=== PATIENT | female | born 1960 | race Caucasian/White ===

== ENCOUNTER → 2023-03-20 | Outpatient (CLI) | payer MEDICARE, SELFPAY ==
--- NOTE | 2023-03-20 16:50 | RAD_ITS ---
STUDY: X-RAY - RIGHT FOOT CLINICAL: Female, 62 years old. PAIN TECHNIQUE: 3 view(s) of the foot. COMPARISON: None. FINDINGS: No acute abnormality seen. No fracture or dislocation. Post surgical changes of talocalcaneal ankylosis and an interference screw is seen in the distal fibula. Normal visualized subtalar, talonavicular, calcaneocuboid, tarsal and tarsometatarsal articulations. Normal metatarsi. Normal metatarsophalangeal joint of the great toe. Normal tibial and fibular sesamoid bones. Normal interphalangeal joint of the great toe. Normal phalanges of the great toe. Normal second through fifth metatarsophalangeal joints. Normal interphalangeal joints and phalanges of the lesser toes. The soft tissue structures are unremarkable. There is no demonstrated acute fracture. RAD/Foot min 3 Views IMPRESSION: Postsurgical changes. No definite acute fracture or dislocation. Electronically Signed: Ar Gomez MD at 22:56 EDT ,
--- NOTE | 2023-03-20 16:54 | RAD_ITS ---
STUDY: X-RAY - LEFT ANKLE REASON FOR EXAM: Female, 62 years old. PAIN TECHNIQUE: 3 view(s) of the ankle. COMPARISON: None. FINDINGS: Normal visualized distal tibia and fibula. Normal medial and lateral malleoli. Normal tibiotalar articulation and ankle mortise. Normal visualized talus and calcaneus. The visualized subtalar, talonavicular, calcaneocuboid and tarsal articulations are normal. There is no demonstrated fracture. There is lateral soft tissue swelling. RAD/Ankle min 3 Views IMPRESSION: No fracture or dislocation. Electronically Signed: Ar Gomez MD at 22:31 EDT ,
== END | disposition home or self-care (01) ==
PROVIDERS: Visit Provider Family Medicine
DX: I10 Essential (primary) hypertension (principal); M25.572 Pain in left ankle and joints of left foot; M19.90 Unspecified osteoarthritis, unspecified site; F41.8 Other specified anxiety disorders
CPT/HCPCS: 73610; 73630

== ENCOUNTER 2023-11-12 19:47 | Emergency (ER) | payer MEDICARE, SELFPAY ==
[2023-11-12 19:48] VITALS: BP 188/111; PULSE 100; RESP 18; TEMP 36.6; O2SAT 95; BMI 33.0
--- NOTE | 2023-11-12 19:52 | RAD_ITS ---
STUDY: X-RAY - RIGHT ANKLE REASON FOR EXAM: Female, 63 years old. Pain TECHNIQUE: 4 view(s) of the ankle. COMPARISON: None. FINDINGS: Normal visualized distal tibia. There is postoperative change of the distal fibula. There is spurring of the medial and lateral malleoli. Normal tibiotalar articulation and ankle mortise. There is screw entering from posteriorly fusing across the subtalar joint. There is plantar spur of the calcaneus. The visualized talonavicular and calcaneocuboid articulations are normal. There is soft tissue swelling. RAD/Ankle min 3 Views IMPRESSION: Degenerative and postoperative change. Electronically Signed: Gerardo Perez MD at 21:08 EDT ,
--- NOTE | 2023-11-12 21:08 | ED.VIS.LOWEX ---
HPI <KELIN Gonzalez - Last Filed: 11/12/23 21:51> History of Present Illness Chief Complaint: Lower Extremity Injury Narrative Narrative: 63-year-old female states she has a right ankle injury from years ago. Initially a qa software tester removed some bone chips but it never healed properly. Around 2014 an orthopedic crystal surgeon did reconstruction surgery. She still gets intermittent pain/swelling in the ankle since then but yesterday was walking in the hallway and felt a crunching in the heel and today has more pain and swelling in the ankle. There was no fall or injury. PFSH <KELIN Gonzalez - Last Filed: 11/12/23 21:51> PFSH Allergy/AdvReac Type Severity Reaction Status Date / Time pregabalin [From Lyrica] Allergy Mild Swelling Verified 11/12/23 19:51 lovastatin AdvReac Mild achy Verified 11/12/23 19:51 Social History Smoking Status: Unknown if ever smoked ROS <KELIN Gonzalez - Last Filed: 11/12/23 21:51> ROS ED ROS Narrative Neuro: Negative for motor/sensory dysfunction. Musc: Positive for right ankle pain, swelling. Heme: Negative for easy bruising, bleeding, lymphadenopathy. EXAM <KELIN Gonzalez - Last Filed: 11/12/23 21:51> Physical Exam Narrative Exam Narrative: CONST: Patient sitting in no acute distress. EYES: Normal inspection. NECK: Normal inspection. SKIN: Color normal, no rash, warm, dry, intact. EXTREMITIES: Right ankle edema lateral greater than medial with lateral malleolus tenderness, no deformity or crepitus, Achilles intact, no tenderness of the foot. 5/5 strength in dorsiflexion/plantarflexion, normal sensation, Dopplers biphasic DP pulse. NEURO: Alert and answering questions appropriately. PSYCH: Normal affect. Const Vital Signs: 11/12/23 19:48 Temperature 97.9 F Temperature Source Temporal Pulse Rate 100 Respiratory Rate 18 Blood Pressure 188/111 H Blood Pressure Mean 136 Pulse Ox 95 Oxygen Delivery Method Room Air <Dr. Dylan Hair MD - Last Filed: 11/12/23 22:32> Physical Exam Const Vital Signs: 11/12/23 19:48 Temperature 97.9 F Temperature Source Temporal Pulse Rate 100 Respiratory Rate 18 Blood Pressure 188/111 H Blood Pressure Mean 136 Pulse Ox 95 Oxygen Delivery Method Room Air [facility] <KELIN Gonzalez - Last Filed: 11/12/23 21:51> [facility] Narrative Medical decision making narrative: Patient has right ankle pain. It started hurting yesterday while walking and she has increased swelling. No direct trauma. She has swelling especially laterally and mild tenderness. No tenderness of the calf or foot is present. Neurovascularly intact. X-ray shows prior surgical hardware no acute findings. This could be ankle sprain versus claudication. Patient is able to ambulate with her cane and requests a referral to a local orthopedist as it has been many years since she saw [facility]. I provided follow-up for Dr. Peña and she was discharged in stable condition Radiography Diagnostic Testing: Clinical Impression(s) from Imaging Studies Ankle X-Ray 11/12/23 19:52 IMPRESSION: Degenerative and postoperative change. Electronically Signed: Gerardo Perez MD at 21:08 EDT Reading Location ID and State: [facility] / [place] , Service support , ED attending interpretation of right ankle shows hardware intact, no acute fracture. <Dr. Dylan Hair MD - Last Filed: 11/12/23 22:32> [facility] Narrative Medical decision making narrative: Patient has right ankle pain. It started hurting yesterday while walking and she has increased swelling. No direct trauma. She has swelling especially laterally and mild tenderness. No tenderness of the calf or foot is present. Neurovascularly intact. X-ray shows prior surgical hardware no acute findings. This could be ankle sprain versus claudication. Patient is able to ambulate with her cane and requests a referral to a local orthopedist as it has been many years since she saw [facility]. I provided follow-up for Dr. Peña and she was discharged in stable condition I have personally performed a face to face assessment of the patient and have reviewed the MIKE Note. I performed a substantive portion of the visit including all aspects of the following. My dudley findings include: History is for pain ankle and heel. Patient had a calcaneal fracture which was repaired by orthopedic surgeon at [facility]. She does not recall the name. She presents because she feels the bones are rubbing. She is also questioning if this bruising had moved. She also reports numbness in the heel area. She denies tingling her toes. She has intermittent claudication. She is a smoker. Exam is patient has stigmata of peripheral arterial disease. There is swelling over the lateral malleolus. There is well-healed scar due to prior surgery. DP and PT pulse are nonpalpable. Patient has biphasic flow noted with Doppler. Patient has no hair on her toes. Skin is thin. There is slight thickening of the toenails. Medical Decision Making x-ray was obtained. X-ray reveals no displacement of hardware. There is arthritic changes. There is no effusion noted. There is no foreign body noted. There is independently reviewed interpreted by me. Other additions or changes: Patient was told that her numbness and all likely is due to her peripheral arterial disease. It was in her best is to stop smoking. Recommended she throw away her pack of cigarettes on the way out of the emergency department. Radiography Chest X-Ray - ED: Read by ED Physician (X-ray was interpreted by me in the attending note portion of the chart.) Diagnostic Testing: Clinical Impression(s) from Imaging Studies Ankle X-Ray 11/12/23 19:52 IMPRESSION: Degenerative and postoperative change. Electronically Signed: Gerardo Perez MD at 21:08 EDT , Discharge Plan Triage Chief Complaint: Lower Extremity Injury ED Midlevel Provider: Della Hawkins ED Provider: Dylan Hair Dx/Rx/DC Orders Clinical Impression: Acute right ankle pain, Paresthesia of right foot, Peripheral arterial disease Instructions: ED Ankle Sprain (Adult) Primary Care Provider: Jake Sy Referrals: Russ Peña MD [Med Staff - Active Staff] - NOT,DEFINED [Non-Staff] - Activity Restrictions/Additional Instructions: Rest, ice, elevate, take Tylenol Motrin as needed and follow-up with orthopedics Disposition Disposition: Home, Self Care Discharge Date/Time: 11/12/23 21:38
== END 2023-11-12 21:38 | disposition home or self-care (01) ==
PROVIDERS: Emergency Provider Emergency Medicine; PCP Family Medicine; Visit Provider Emergency Medicine
DX: M25.571 Pain in right ankle and joints of right foot (principal); I73.9 Peripheral vascular disease, unspecified; F17.210 Nicotine dependence, cigarettes, uncomplicated; M19.071 Primary osteoarthritis, right ankle and foot; Z98.890 Other specified postprocedural states; R20.2 Paresthesia of skin
CPT/HCPCS: 73610; 99282

== ENCOUNTER 2024-06-17 11:33 | Inpatient (IN) | payer MEDICARE, SELFPAY ==
[2024-06-17] VITALS (20 sets, daily range): BP systolic 105–173; BP diastolic 60–128; PULSE 58–92; RESP 13–25; TEMP 35.9–36.8; O2SAT 95–100; BMI 33.8; BMI 33.7
--- NOTE | 2024-06-17 11:34 | EKG12_ITS ---
Test Reason : STEMI Blood Pressure : */* mmHG Vent. Rate : 94 BPM Atrial Rate : 94 BPM P-R Int : 136 ms QRS Dur : 82 ms QT Int : 386 ms P-R-T Axes : 43 8 127 degrees QTcB Int : 482 ms Normal sinus rhythm Left ventricular hypertrophy with repolarization abnormality ( R in aVL ) Abnormal ECG Confirmed by Gary Cardona ([id number]), supervising editor trailer KATT CASEY ([id number]) on 06/20/2024 6:21:15 AM Referred By: Ganga Junior Confirmed By: Gary Cardona
--- NOTE | 2024-06-17 11:37 | ED.VIS.CHEST ---
HPI History of Present Illness Chief Complaint: Chest Other Detail of Chief Complaint: Indigestion with referred pain to the left scapula and back Informant: patient Onset/Context/Timing Onset: Days (Digestion started on Thursday. Worse yesterday) Activity at onset: sudden Timing: Continuous (Continuous since last evening) Quality: Positive for Burning Location: - (Left scapula) Current Severity: Mild Maximum Severity: Moderate Worsened By: Exertion; Not Worsened By Movement of Arm, Movement of Torso, Eating, Palpation, Breathing or Coughing Relieved By: Nothing Associated Symptoms: Positive for Nausea, Diaphoresis and Dyspnea; Negative for Vomiting, Cough, Fever, Lightheadedness, Acid Reflux or Palpitations Narrative Narrative: Patient is a 63-year-old woman with history of depression. She is on no cardiovascular meds. She has no history coronary disease or any medical problems. Patient arrived from urgent care with EKG and hand which reveals mild ST elevation inferiorly with findings consistent with an acute posterior myocardial infarction. Prior Similar Symptoms: No CVD Risk Factors: Negative for Hypertension, Diabetes, Hypercholesterolemia, Family History 1' </=55 or Smoking PE Risk Factors: Negative for Recent Travel/Surgery, Recent Immobilization, Prior DVT or PE or Cancer TAD Risk Factors: Negative for Marfan's Syndrome, Hypertension or Family History PFSH PFSH no medical history Allergy/AdvReac Type Severity Reaction Status Date / Time pregabalin (From Lyrica) Allergy Mild Swelling Verified 11/12/23 19:51 lovastatin AdvReac Mild achy Verified 11/12/23 19:51 Social History Smoking Status: Unknown if ever smoked ROS ROS ED Constitutional Constitutional ED: Denies chills, fever(s), subjective or sweats Eyes Eyes: Reports none Cardiovascular Cardiovascular: Reports as per HPI; Denies orthopnea or paroxysmal nocturnal dyspnea Respiratory/Chest Respiratory/Chest: Reports dyspnea and dyspnea on exertion; Denies cough, orthopnea or paroxysmal nocturnal dyspnea Gastrointestinal Gastrointestinal: Denies abdominal pain, nausea or vomiting Genitourinary Genitourinary ED: Denies dysuria, hematuria or urinary frequency Musculoskeletal Musculoskeletal: Reports back pain; Denies arthralgias or myalgias Psychiatric Psychiatric: Denies anxiety or depression Hematologic/Lymphatic Hematologic/Lymphatic: Denies easy bleeding or easy bruising Allergic/Immunologic Allergic/Immunologic ED: Denies mouth swelling or tongue swelling EXAM Physical Exam Const Vital Signs: 06/17/24 11:34 Temperature 98.2 F Temperature Source Oral Pulse Rate 87 Respiratory Rate 18 Pulse Ox 98 Positive well nourished and well developed Constitutional Narrative: BMI 33.9. General Appearance ED: well developed; Negative for pallor HEENT Reports moist mucous membranes normocephalic and atraumatic Eyes PERRL and EOMs intact bilaterally General Eye ED: Negative for pale conjunctiva or scleral icterus Neck no lymphadenopathy, supple and no JVD Resp normal respiratory effort and clear to auscultation bilaterally Cardio regular rate, regular rhythm, S1 normal heart sound, S2 normal heart sound and no murmurs GI normal to inspection, nondistended, normoactive bowel sounds, soft to palpation, non-tender, non-distended and no masses; Negative for hepatosplenomegaly Back/Spine Back/Spine Narrative: Back appears normal. Extremity normal to inspection Neuro oriented x3 and CN's II-XII intact bilaterally Sensorium / Orientation: awake and alert Psych mental status grossly normal Skin no rashes or lesions noted and no wounds General Skin Exam: Negative for pallor MDM MDM MDM Narrative Medical decision making narrative: Patient presents with EKG from urgent care which reveals an acute posterior myocardial infarction with some abnormality in inferior leads. Suspect she has a distal RCA lesion or circumflex lesion. Spoke with business control specialist Dr. Junior. He reviewed EKG and agrees. Patient be taken straight to Door Liner Helper when she received heparin, aspirin and Brilinta. EKG Initial EKG: Attestation: I personally reviewed and interpreted this EKG as follows: Interpretation: Sinus Rhythm (Rate is 90. Patient has an acute posterior myocardial infarction. MT interval is under 40 ms. QS duration 86 ms. Rotan is normal.) Treatment and Re-Evaluation :: Patient was treated with aspirin, Brilinta and heparin bolus. Patient was taken straight to [facility]. Critical Care Time Critical Care Time: Yes Critical care time (excluding procedures): 30-74 minutes (5), Including time spent: (History, physical, documentation independent rotation of EKG), Discussing w/Patient &/or Family/Sorting And Folding Supervisor, Discussing w/Consultants (city council member) and Arranging Admission or Transfer Discharge Plan Triage Chief Complaint: Chest Other ED Provider: HairDylan Dx/Rx/DC Orders Clinical Impression: Acute NV, true posterior wall, initial episode of care Primary Care Provider: Jake Sy Referrals: Jake Sy MD [Primary Care Provider] - Print Language: Kinyarwanda Disposition Disposition: Acute Care [facility]
[2024-06-17] MEDS: Heparin Injection (Vial) 5,000 UNIT/ML VIAL 5000 UNIT IV (11:39)
[2024-06-17] MEDS: Aspirin 81 MG TAB.CHEW 324 MG PO (11:39)
[2024-06-17] MEDS: TICAGRELOR 90 MG TABLET 180 MG PO (11:39)
[2024-06-17 11:54] LABS: Absolute Lymphocyte Count 4.12 X10^3/uL (0.83-4.51); Absolute Neutrophil Count 8.5 X10^3/uL (2.0-7.7); Basophil# 0.11 X10^3/uL; Basophil% 0.8 % (0-1); Eosinophils% 2.8 % (0-5); Hematocrit 51.3 % (37-47); Hemoglobin 17.7 g/dL (12.0-15.0); Lymphocyte # 4.12 X10^3/ul (0.83-4.51); Lymphocyte % 29.3 % (19-41); Mean Corp Hgb Conc 34.5 g/dL (32-36); Mean Corpuscular Hgb 31.6 pg (27.0-32.0); Mean Corpuscular Volume 91.4 fL (81-99); Mean Platelet Vol. 11.9 fl (6.2-12.0); Monocyte# 0.85 X10^3/uL; NRBC Flagged by Analyzer 0 % (0-5); Neutrophil # 8.49 X10^3/uL (2.7-7.7); Neutrophil % 60.5 % (47-70); Platelet Count 268 K/mm3 (150-450); RBC Distribution Width CV 12.5 % (11.6-14.6); RBC Distribution Width SD 41.7 fl (35.1-43.9); Red Blood Count 5.61 M/mm3 (4.2-5.4); White Blood Count 14.1 K/mm3 (4.4-11.0)
--- NOTE | 2024-06-17 12:04 | CM.ED ---
Social work Reason for referral: stemi alert This SW responded to stemi alert called. Patient's , Cole, arrived in the room a few moments later and this SW introduced self and role at [facility]. Cole asked to step out into the hallway in order to concentrate more on conversation. Cole stated he had been to the hospital multiple times in the past due to his own heart struggles with A-fib. Cole reported patient struggling more lately and Cole having to take on more of the responsibilities at home. Emotional support provided. [facility] Furniture Stainer Elvin arrived for support and introduced himself as well. Cole was asked to complete registration at this time and patient was taken down to the medical laboratory manager. Elvin and this SW walked Cole to the medical laboratory manager waiting room. SW asked if there was anyone that SW could call for support for Cole. Cole identified that he and patient spoke before arrival and patient's wishes were not to alarm anyone until more information was known. Cole stated patient's mother is 92 and patient's mother and daughter would be called by Cole himself once he had more information to provide. Cole reported feeling okay about the situation and this SW encouraged Cole to reach out to the acute SW team with any further needs. Elvin remained with Cole while this SW returned to the ED. No other needs identified at this time. Plan: admission to acute following medical laboratory manager procedure; acute RN CM/SW team to follow as needed. Celia Blanchard, MITTEN STITCHER, TOOL AND DIE INSPECTOR
[2024-06-17 12:07] LABS: International Normalized Ratio 0.9; Prothrombin Time (Protime)PT. 12.1 SECONDS (11.7-14.9)
[2024-06-17 12:08] LABS: Partial Thromboplast Time 27.2 Seconds (24.1-36.2)
[2024-06-17 12:18] LABS: Anion Gap 6 (5-15); BUN 28 mg/dL (7-18); BUN/Creat Ratio 24.6 RATIO (10-20); Calcium,Total 10.7 mg/dL (8.5-10.1); Chloride 106 mmol/L (98-107); Creatinine, Serum 1.14 mg/dL (0.55-1.02); EST Glomerular Filtration Rate 51 mL/min (>60); Est Glom Filt Rate - Afr Amer 62 mL/min (>60); Estimated Creatinine Clearance 58.74 ml/min; Glucose 160 mg/dL (74-106); Potassium 4.6 mmol/L (3.5-5.1); Sodium Level 137 mmol/L (136-145); Troponin-I HS 7944 pg/mL (3.0-54.0)
--- NOTE | 2024-06-17 12:59 | CHAPLAIN ---
Type of Pastoral Visit ___ Initial Visit ___ Follow-up Visit ___ On-call Visit ___ General Patient Visit ___ Spiritual Assessment ___ Family Conference ___ Bereavement _x__ Rapid Response ___ Code Blue ___ Other (describe below) Pastoral Care Referral From ___ Patient ___ Family ___ Nurse ___ Physician ___ Education General Manager ___ Call Center Support Consultant _x__ Other (describe below) Sacrament/Intervention _x__ Active listening ___ Anointing ___ Pentecostalism ___ Bereavement ___ Communion ___ Gisela exploration ___ _x__ Life review _x__ Prayer ___ Reconciliation ___ Sacrament of Sick _x__ Supportive presence ___ Wedding _x__ Other (describe below) Pastoral Comments responded to this stemi alert in the ED and found spouse in the hallway with the SW; offered support; when patient was taken to the Plant Breeder Scientist, this social media marketing specialist and the SW escorted pt to the waiting area of the Plant Breeder Scientist, gave presence, listening ear, and a prayer as welcomed; pt was then moved to ICU and there birgit social media marketing specialist met up with the spouse and inquired of outcome and any needs again for either of them; spouse is encouraged by the result and denies any further need
--- NOTE | 2024-06-17 13:16 | CON.PCM.CA_ITS ---
<Statement entered by Ganga Junior MD - 06/17/24 14:49> Pt seen & evaluated w/MIKE. I personally interviewed & exam the pt. I was involved in all aspects of pt's orders, interpretation of results & treatment Documented by User: Debby NEVILLE, PA 06/17/24 14:22 Assessment & Plan Assessment/Plan (1) Arteriosclerosis of coronary artery: (2) Stented coronary artery: (3) Acute MN, true posterior wall, initial episode of care: HPI Consult Data Date of Consult: 06/17/24 HPI Narrative HPI Narrative: TANIYA GREEN, is a 63 F who presented to [facility] ER for CP. She had initially presented to her urgent care with chest discomfort, indigestion that radiated up to her scapula and her back. EKG that was d done there may had concern for a posterior myocardial infarction. There is mild ST elevation inferiorly with ST depression laterally. In talking with patient and it was noted that her chest pain began Thursday or Thursday. She does have significant fibromyalgia so she was thinking that this discomfort was related to her fibromyalgia. She was not able to sleep well. She was having significant back pain. She did have some nausea and diaphoresis with it. She did not have any vomiting. She is not very active because of her fibromyalgia. She does not have a history of coronary artery disease. She does not have any hypertension. Patient was urgently taken to the Heat Treating Operator. [facility] Medical History (Updated 06/17/24 @ 14:46 by Cecilia Lucas) Arteriosclerosis of coronary artery (06/17/24) Medical History no medical history Home Medications ?Medication ?Instructions ?Recorded ?Last Taken ?Type dextroamphetamine-amphetamine 30 1 tab PO TID depression 06/17/24 Unknown History mg tablet duloxetine 60 mg capsule,delayed 120 mg PO DAILY depression 06/17/24 Unknown History release Allergy/AdvReac Type Severity Reaction Status Date / Time pregabalin (From Lyrica) Allergy Mild Swelling Verified 11/12/23 19:51 lovastatin AdvReac Mild achy Verified 11/12/23 19:51 Surgical History (Updated 06/17/24 @ 14:46 by Cecilia Lucas) Stented coronary artery (06/17/24) Social History Smoking Status: Current every day smoker tobacco type: cigarettes ROS ROS Narrative See HPI, patient was urgently taken to the Heat Treating Operator. Risk Stratification Risk Stratification Applicable: Yes Age >/= 65: No >/= 3 CAD Risk Factors (HTN, HLD, DM, family hx of CAD, or current smoker): No Aspirin Use in the Past 7 Days: No Severe Angina (>/= episodes in 24 hours): Yes EKG ST Changes >/= 0.5mm: Yes Positive Cardiac Marker: Yes ADITI Risk Stratification Score: 3 ADITI % Risk: 13% Risk Objective Data Vital Signs: Vital Signs Temp Pulse Resp BP Pulse Ox O2 Del Method 98.2 F 87 18 158/77 H 98 Room Air 06/17/24 11:34 06/17/24 11:34 06/17/24 11:34 06/17/24 11:33 06/17/24 11:34 06/17/24 11:47 Oxygen Delivery Method Room Air Weight: 209 lb 14.081 oz Body Mass Index (BMI) 33.7 Lab / Micro Data 06/17/24 11:49 06/17/24 11:49 Labs: Laboratory Results - last 24 hr 06/17/24 11:49: WBC 14.1 H, RBC 5.61 H, Hgb 17.7 H, Hct 51.3 H, MCV 91.4, MCH 31.6, MCHC 34.5, RDW Std Deviation 41.7, RDW Coeff of Verónica 12.5, Plt Count 268, MPV 11.9, Immature Gran % (Auto) 0.600, Neut % (Auto) 60.5, Lymph % (Auto) 29.3, Webb % (Auto) 6.0, Eos % (Auto) 2.8, Baso % (Auto) 0.8, Absolute Neuts (auto) 8.5 H, Absolute Lymphs (auto) 4.12, Nucleated RBC % 0, PT 12.1, INR 0.9, APTT 27.2, Sodium 137, Potassium 4.6, Chloride 106, Carbon Dioxide 25.0, Anion Gap 6, BUN 28 H, Creatinine 1.14 H, Estim Creat Clear Calc 58.74, Est GFR (MDRD) Af Amer 62, Est GFR (MDRD) Non-Af 51 L, BUN/Creatinine Ratio 24.6 H, Glucose 160 H, Calcium 10.7 H, Troponin I High Sens 7944 H* Cardiology Labs/Tests 06/17/24 11:49: WBC 14.1 H, RBC 5.61 H, Hgb 17.7 H, Hct 51.3 H, MCV 91.4, MCH 31.6, MCHC 34.5, Plt Count 268, MPV 11.9, Immature Gran % (Auto) 0.600, Neut % (Auto) 60.5, Lymph % (Auto) 29.3, Webb % (Auto) 6.0, Eos % (Auto) 2.8, Baso % (Auto) 0.8, Absolute Neuts (auto) 8.5 H, Nucleated RBC % 0, PT 12.1, INR 0.9, APTT 27.2, Sodium 137, Potassium 4.6, Chloride 106, Carbon Dioxide 25.0, Anion Gap 6, BUN 28 H, Creatinine 1.14 H, Est GFR (MDRD) Af Amer 62, Est GFR (MDRD) Non-Af 51 L, BUN/Creatinine Ratio 24.6 H, Glucose 160 H, Calcium 10.7 H Documented by User: Dr. Ganga Junior MD 06/17/24 14:54 Assessment & Plan Assessment/Plan (1) Arteriosclerosis of coronary artery: (2) Stented coronary artery: (3) Acute MN, true posterior wall, initial episode of care: PLAN: Cardiac care plan recommendations; 63-year-old patient seen and evaluated in ED at [facility] Patient had ongoing symptoms of epigastric and back pain needly since Thursday she also had history of diaphoresis Last night her symptoms of recurred described as substernal chest pain and continue to have same symptoms this morning on seen in the ED She had a history of smoking history of anxiety disorder. She attributed all the symptoms to her anxiety disorders And when I saw him the ER she still had symptoms of chest pain and the EKG consistent with a age-indeterminate inferior MN small Q waves noted in the inferior leads as well she had ST depression noted in V2 V3 consistent with inferoposterior MN. Based on her clinical presentation patient was stable clinically she was given heparin given a Brilinta loading dose 180 mg and was taken to the Heat Treating Operator where cardiac catheterization performed demonstrated large high-grade lesion involving the proximal RCA with successful PCI using a drug-eluting stent 4 x 38 mm and achievement of excellent result with ADITI-3 flow in the RCA. She also had a [facility] of the proximal left circumflex Post PCI collateralization from the posterolateral branch to the left circumflex OM1. The LAD had moderate disease of around 40 to 50% involving the proximal to the mid LAD which is diffuse disease in the left main is a large normal angiographically Based on this presentation and the larger stent in the RCA patient was kept in Integrilin for 12 hours Cardiac care plan recommendations; Patient had a history of smoking advised cessation of smoking #2 to continue on dual antiplatelet therapy with low-dose aspirin and Brilinta 90 mg twice daily Rest of cardiac medication will be high-dose statin, low-dose beta-jeni and CHEPE inhibitor as tolerated. Patient also scheduled for phase 1 cardiac rehab program at [facility] Patient is scheduled also to follow-up with primary hanger here at [facility] for continuation of cardiac care She will be monitored in intensive care unit and she will be seen by the loan review officer and the medical team and if she remained stable she may be discharged home tomorrow and we will evaluate by echocardiogram in the morning. Ganga Junior MD,[facility] HPI Consult Data Date of Consult: 06/17/24 [facility] Medical History (Updated 06/17/24 @ 14:46 by Cecilia Lucas) Arteriosclerosis of coronary artery (06/17/24) Medical History no medical history Home Medications ?Medication ?Instructions ?Recorded ?Last Taken ?Type dextroamphetamine-amphetamine 30 1 tab PO TID depression 06/17/24 Unknown History mg tablet duloxetine 60 mg capsule,delayed 120 mg PO DAILY depression 06/17/24 Unknown History release Allergy/AdvReac Type Severity Reaction Status Date / Time pregabalin (From Lyrica) Allergy Mild Swelling Verified 11/12/23 19:51 lovastatin AdvReac Mild achy Verified 11/12/23 19:51 Surgical History (Updated 06/17/24 @ 14:46 by Cecilia Lucas) Stented coronary artery (06/17/24) Social History Smoking Status: Current every day smoker tobacco type: cigarettes Risk Stratification Age >/= 65: No ADITI Risk Stratification Score: 3 ADITI % Risk: 13% Risk Lab / Micro Data 06/17/24 11:49 06/17/24 11:49
--- NOTE | 2024-06-17 13:20 | CRPHASE1 ---
Patient Communication Patient Information Former Patient:: Phase I PHII Cardiac Rehab Discussed with Patient:: Yes Guide to Cardiac Rehab Given to Patient:: Yes Cardiac Rehab Facility Choice List Given to Patient:: Yes Communication to Cardiac Rehab Choice Program [facility] PHII:: Communication Given to CR Choice Program Other:: Communication Given to CR Medical Biller/Coder:: Ganga Junior Sessions:: 36 sessions - 3 days/wk, 12 weeks Medical/Surgical History Medical History PA:: Yes Angina:: Yes CAD:: Yes Congestive Heart Failure: Cardiomyopathy:: No Valve Disease/Replacement:: No Pulmonary:: No COPD:: No Asthma:: No Diabetes:: No Diabetes Type I:: No Diabetes Type II:: No Hypertension:: Yes CVA/TIA: DVT:: No GERD:: Yes Surgical History PTCA:: Yes Cardiac Rehabilitation Info Program Information Cardiac Rehabilitation Program Information: Cardiac Rehab The cardiac rehab team at [facility] consists of highly skilled exercise physiologists, nurses, respiratory therapists and physicians working together with you. Our purpose is to help you have a full recovery and achieve the goals you set for yourself. Over the years many of our patients have returned to activities they assumed they would never do again! We can help restore your confidence and motivation to make lifestyle changes that can have a significant impact on your health and quality of life! We can help answer questions and concerns you may have about exercise, lifestyle, medications, diet, stress and anxiety which are common following a hospitalization. WE monitor ECG and vital signs during exercise and discuss your progress with you and report to your physician(s). Cardiac Rehab is proven to help reduce readmissions, improve functional capacity and lower recurrence of problems with your heart. Our Cardiac Rehab program is Certified by the [place] [employer]-V[employer] Pulmonary [employer] (AACVPR) and Accredited by the [place] [employer] through our [facility]. You can contact us at . We invite you to call us with your questions or to get started in our program. If you have other questions or concerns be sure to ask your physician/provider during your follow-up visit. WE look forward to seeing you!
--- NOTE | 2024-06-17 13:21 | CRPH1.INSTRU ---
General Education Discussed with Patient CAD and cardiac anatomy and function:: Patient communicates acknowledgment Explanation of diagnoses and procedures:: Patient communicates acknowledgment Sign/Symptoms of OR:: Patient communicates acknowledgment Antiplatelet therapy: Patient communicates acknowledgment Proper use of NTG-SL: Patient communicates acknowledgment Emergency procedures and activation of EMS: Patient communicates acknowledgment Compliance of all prescribed medications: Patient communicates acknowledgment Smoking Response Code Nicotine/Smoking Response Code:: Patient communicates acknowledgment and Needs reinforcement Dyslipidemia Recommendations Recommendations Include:: Lipid profile not available Response Code Dyslipidemia Response Code:: Patient communicates acknowledgment Overweight/Obesity Risk Factors Patient Overweight/Obesity Risk Factors Are:: Overweight = 26-29 Recommendations Recommendations Include:: Reduced calorie diet and Exercise 5-7 times/week Response Code Overweight/Obesity:: Patient communicates acknowledgment Hypertension Recommendations Recommendations Include:: Decrease/maintain normal body weight and Moderation of ETOH Response Code Hypertension:: Patient communicates acknowledgment Heart Disease Risk Factors Patient Heart Disease Risk Factors Are:: Previous cardiac event Recommendations Recommendations Include:: Educated family members of their risk and Educated family members of importance of prevention of heart disease Response Code Heart Disease Response Code:: Patient communicates acknowledgment Diabetes Risk Factors Patient Diabetes Risk Factors Are:: No documented hx of diabetes Metabolic Syndrome Risk Factors Patient Metabolic Syndrome Risk Factors Are [3 of 5]:: Hypertension Sedentary Risk Factors Patient Sedentary Risk Factors Are:: Lack of regular exercise Recommendations Recommendations Include:: Monitored Outpatient Cardiac Rehab Response Code Sedentary Response Code:: Patient communicates acknowledgment Stress Risk Factors Patient Stress Risk Factors Are:: Patient denies stress as a risk factor Response Code Stress Response Code:: Patient communicates acknowledgment
[2024-06-17] MEDS: EPTIFIBATIDE 75 MG/100 ML VIAL 15 MG CONT INF ×2 (13:45→18:51)
--- NOTE | 2024-06-17 14:12 | PCI.CARDCATH ---
PCI Cardiac Cath Report PCI Report: PCI cardiac cath report; 1. Selective left coronary angiography 2. Selective right coronary angiography 3. Measurement of LVEDP and a pullback pressure 4. Placement of drug-eluting stent to large proximal RCA 90% stenosis with ADITI II flow post PCI 0% stenosis and ADITI-3 flow Placement of large 4 x 38 mm drug-eluting stent to proximal to mid RCA 5. Placement of TR band to close the right radial artery arteriotomy site. Consent; Risk and benefit procedure explained detail emergency consent obtained. Preprocedure diagnosis 63-year-old patient who has ongoing symptoms of chest pain epigastric discomfort with some radiation to the back for 5 days since Thursday She did mention that last night she could not sleep because of the recurrence of symptoms of chest pain and she came this morning To the ED at [facility] where she was seen by the ER physician and EKG was abnormal with clear ST depression noted in V2-V3 with some mild ST elevation in the inferior leads with Q waves. This is consistent with age-indeterminate inferior?posterior PA. Diagnostic and interventional equipment used; 1. 6 [place] sheath placed in the right radial artery A cocktail of verapamil, nitroglycerin and heparin was given through the right radial artery sheath. 2. 5 [place] JL 3 5 3. 5 [place] African JR4 4. 6 [place] African JR4 guide 5. 014 180 cm run-through extra floppy glide straight wire. 6. 2.5 x 15 mm emerge MR balloon 7. 4 X38 mm Ron frontier drug-eluting stent Procedure in detail patient brought to the [facility] Laboratory Professional as an emergency from the ED at [facility] Right radial artery prepped and draped and access obtained without difficulty from the right radial artery 6 [place] sheath placed Then we will proceed with a diagnostic catheter 5 [place] JL 3 5 advancing aorta cannulated the left main multiple views the left Cholestin obtained Following the catheter exchanged for 5 [place] JR4 and cannulated the RCA and 2 views of the RCA were obtained Identified the lesion is a high-grade lesion involving the proximal RCA and a large dominant RCA. Will proceed with interventional plan We crossed the lesion successfully predilated the lesion with 2.5 x 15 mm balloon And followed by drug-eluting stent using 4 x 38 mm up to 12 [place] and achieve an excellent result Initially there was a spasm involving the distal portion of the RCA into the bifurcation Patient was given 200 mcg of nitroglycerin. Relieve the spasm The last view of the RCA showed a large dominant RCA with a ADITI-3 flow with reduction of stenosis from 90% to 0%. Medication used in the [facility] 1. Heparin with ACT acceptable above 250 2. 2 boluses of Integrilin and Integrilin infusion for a total of 12 hours 3. Patient was given Brilinta in the ED department, 180 mg as well as aspirin. 4. Intracoronary nitroglycerin Hemodynamic; LVEDP around 14 mmHg No systolic gradient across aortic valve. Coronary angiography; 1. Left main is a large vessel angiographically normal Bifurcating into LAD and left circumflex 2. Left anterior descending has proximal to mid diffuse atherosclerosis of around 40-50% with a ADITI-3 flow in the LAD It has abundant septal branches of prominent Pharis diagonal branch. 3. Left circumflex artery is occluded proximally 4. Collaterals noted from the left side to the distal RCA 5. RCA large dominant with proximal RCA at the high-grade 90% stenosis with diffuse atherosclerosis involving the mid RCA Successful PCI of the RCA with a ADITI-3 flow as described Recommendation; 1. Patient will be admitted to the ICU and will start on Integrilin for 12 hours 2. Will evaluate by series of high sensitive troponins 3. Echocardiogram to be performed in the morning 4. Dual antiplatelet therapy with Brilinta 90 mg twice daily in addition to low-dose aspirin for 1 year 5. Rest of the cardiac medication will include atorvastatin, low-dose beta-jeni and CHEPE inhibitor. 6. Patient had a history of smoking advised cessation for smoking 7. Cardiac rehab program phase 1 at [facility] 8. Patient to follow-up with stripper shovel operator for continuation of cardiac care. 9. Patient will be admitted to the medical team to address other medications as patient had history of anxiety disorders. Ganga Junior MD,[facility]
--- NOTE | 2024-06-17 14:58 | EKG12_ITS ---
Test Reason : am ekg Blood Pressure : */* mmHG Vent. Rate : 74 BPM Atrial Rate : 74 BPM P-R Int : 130 ms QRS Dur : 82 ms QT Int : 428 ms P-R-T Axes : 32 11 119 degrees QTcB Int : 475 ms Normal sinus rhythm Inferior-posterior infarct , age undetermined ST & T wave abnormality, consider lateral ischemia Abnormal ECG When compared with ECG of 17-Jun-2024 11:39, MANUAL COMPARISON REQUIRED DATA IS UNCONFIRMED Confirmed by Gary Cardona ([id number]), greeting card editor KATT CASEY ([id number]) on 06/20/2024 9:59:22 AM Referred By: Ganga Junior Confirmed By: Gary Cardona
--- NOTE | 2024-06-17 14:59 | HP.PCM.HOS_ITS ---
HPI - General General Date of Admission: 06/17/24 Date of Service: 06/17/24 Chief Complaint: Chest pain with referred pain to left scapula and back HPI Narrative TANIYA GREEN, is a 63 F who presented to the emergency department at [facility] on 06/17/2024 with a chief complaint of indigestion type symptoms that had referred pain to the left scapula and central back area. She had concomitant nausea, diaphoresis, and shortness of breath. She has a history of tobacco abuse and I suspect hyperlipidemia because she has an allergy to lovastatin. Patient arrived from urgent care with an EKG in her hand which revealed mild ST elevation inferiorly which was concerning for posterior myocardial infarction and ST depression in the anterior lateral leads. Based on the EKG there was concern that she had a distal RCA or circumflex lesion and the emergency department physician spoke with the pie bottomer who reviewed the EKG and the patient was taken to the Diesel Fitter Mechanic after she received heparin, aspirin, and Brilinta. Vital signs on presentation showed temperature 98.2, heart rate 87, respiratory rate 18, pulse ox was 98% on room air and blood pressure was 147/91. CBC shows a mild leukocytosis a white count of 12.9 but no shift. Coags are normal. Chemistry panel shows mildly elevated BUN and creatinine at 28 and 1.14 with unknown baseline. Initial troponin was 7944. Patient was taken emergently to the Diesel Fitter Mechanic where she was found to have a high- grade lesion in the proximal RCA with successful PE CI via LUZMARIA with resultant ADITI-3 flow. She was noted to have disease elsewhere but no other culprit type lesions. She was admitted to the intensive care unit following cardiac catheterization. [facility] Medical History (Updated 06/17/24 @ 19:[address] Rosa Maria Cordova, DO) Depression Fibromyalgia ADHD Tobacco abuse Arteriosclerosis of coronary artery (06/17/24) Medical History no medical history Home Medications ?Medication ?Instructions ?Recorded ?Last Taken ?Type dextroamphetamine-amphetamine 30 1 tab PO TID depression 06/17/24 Unknown History mg tablet duloxetine 60 mg capsule,delayed 120 mg PO DAILY depression 06/17/24 Unknown History release escitalopram oxalate 10 mg tablet 10 mg PO DAILY depression 06/17/24 Unknown History Allergy/AdvReac Type Severity Reaction Status Date / Time pregabalin (From Lyrica) Allergy Mild Swelling Verified 11/12/23 19:51 lovastatin AdvReac Mild achy Verified 11/12/23 19:51 Family History (Updated 06/17/24 @ 19:[address] Rosa Maria Cordova DO) Other COPD (chronic obstructive pulmonary disease) Heart disease Hypertension Surgical History (Updated 06/17/24 @ 14:46 by Cecilia Lucas) Stented coronary artery (06/17/24) Social History (Updated 06/17/24 @ 19:[address] Rosa Maria Cordova DO) Smoking Status: Current every day smoker tobacco type: cigarettes alcohol intake: never substance use type: does not use ROS Constitutional Constitutional: Denies anorexia, change in weight, chills, fatigue, fever(s), malaise, night sweats, weakness or other Eyes Eyes: Denies blurry vision, change in eye color, change in vision, discharge from eye(s), double vision, erythema, eye pain, loss of vision or other ENT HEENT: Denies abnormal hearing, dysphagia, ear pain, epistaxis, headache(s), hearing loss, nasal congestion, nasal discharge, post nasal drip, sinus pressure, sore throat or other Cardiovascular Cardiovascular: Reports chest pain; Denies claudication, dyspnea on exertion, edema, lightheadedness, orthopnea, palpitations, paroxysmal nocturnal dyspnea, rapid heart rate, syncope or other Respiratory/Chest Respiratory/Chest: Reports dyspnea and shortness of breath at rest; Denies cough, excessive phlegm production, hemoptysis, productive cough, shortness of breath with exertion, wheezing or other Gastrointestinal Gastrointestinal: Reports dyspepsia; Denies abdominal pain, coffee ground emesis, constipation, diarrhea, hematemesis, hematochezia, loose stools, melena, nausea, vomiting or other Genitourinary Genitourinary: Denies burning urination, difficulty urinating, dysuria, hematuria, nocturia, urinary frequency, urinary hesitancy, urinary incontinence, urinary urgency or other Musculoskeletal Musculoskeletal: Reports back pain; Denies arthralgias, joint pain, joint stiffness, joint swelling, myalgias, neck pain or other Neurologic Neurologic: Denies abnormal gait, abnormal speech, confusion, disequilibrium, dizziness, focal weakness, headache(s), numbness, paresthesias, seizure-like activity, seizures, syncope, tingling, tremor(s) or other Psychiatric Psychiatric: Reports anxiety and depression; Denies homicidal ideation, suicidal ideation or other Endocrine Endocrinology: Denies change in body appearance, cold intolerance, excessive sweating, heat intolerance, polydipsia, polyuria or other Hematologic/Lymphatic Hematologic/Lymphatic: Denies anemia, easy bleeding, easy bruising, lymphadenopathy or other Allergic/Immunologic Allergic/Immunologic: Denies rhinitis, hives, eczemia, asthma or other Vital Signs Vital Signs Vital Signs: 06/17/24 11:33 06/17/24 11:34 06/17/24 11:47 Temperature 98.2 F Temperature Source Oral Pulse Rate 87 Respiratory Rate 20 H 18 Blood Pressure 158/77 H Blood Pressure Mean Blood Pressure Source Blood Pressure Position Blood Pressure Location Pulse Ox 98 Oxygen Delivery Method Room Air 06/17/24 12:45 06/17/24 13:00 06/17/24 13:15 Temperature 96.6 F L Temperature Source Temporal Pulse Rate 70 83 85 Respiratory Rate 18 20 H 16 Blood Pressure 147/91 H 132/96 H 105/60 Blood Pressure Mean 109 108 75 Blood Pressure Source Monitor Monitor Monitor Blood Pressure Position Semi-Fowlers Semi-Fowlers Semi-Fowlers Blood Pressure Location Left Arm Left Arm Left Arm Pulse Ox 99 99 99 Oxygen Delivery Method Room Air Room Air Room Air 06/17/24 13:30 Temperature Temperature Source Pulse Rate 63 Respiratory Rate 16 Blood Pressure 114/78 Blood Pressure Mean 90 Blood Pressure Source Monitor Blood Pressure Position Semi-Fowlers Blood Pressure Location Left Arm Pulse Ox 100 Oxygen Delivery Method Room Air Weight Weight: 95.2 kg Body Mass Index (BMI) 33.7 Physical Exam Const alert, oriented x3, no apparent distress and well nourished; Negative for average body habitus or healthy appearing Constitutional Narrative: Obese, upper middle-aged, white female, sitting up in bed, appears comfortable, nontoxic, nursing at bedside General Appearance: cooperative HEENT normocephalic, head/scalp atraumatic and hearing grossly normal bilaterally HEENT Narrative: Mallampati 3, no thrush Resp normal respiratory effort, no retractions, no use of accessory muscles and clear to auscultation bilaterally Resp Narrative: Diffusely diminished but clear Auscultation: Negative for rales, rhonchi or wheezes Cardio regular rate, regular rhythm, S1 normal heart sound, S2 normal heart sound, no murmurs, no rub, no gallops and no clicks GI normal to inspection, nondistended, normoactive bowel sounds, soft to palpation and non-tender Extremity no clubbing, cyanosis or edema Extremity Narrative: Left radial pulses 2+, compression device on the right radial artery, pedal pulses are 2+ bilaterally Neuro oriented x3, moves all extremities and no focal motor deficits Speech: speech normal Psych Psych Narrative: Patient slightly anxious, eye contact is good and patient interacts appropriately Results Lab / Micro Data 06/17/24 14:47 06/17/24 11:49 Labs: Laboratory Results - last 24 hr 06/17/24 11:49: WBC 14.1 H, RBC 5.61 H, Hgb 17.7 H, Hct 51.3 H, MCV 91.4, MCH 31.6, MCHC 34.5, RDW Std Deviation 41.7, RDW Coeff of Verónica 12.5, Plt Count 268, MPV 11.9, Immature Gran % (Auto) 0.600, Neut % (Auto) 60.5, Lymph % (Auto) 29.3, Dubois % (Auto) 6.0, Eos % (Auto) 2.8, Baso % (Auto) 0.8, Absolute Neuts (auto) 8.5 H, Absolute Lymphs (auto) 4.12, Nucleated RBC % 0, PT 12.1, INR 0.9, APTT 27.2, Sodium 137, Potassium 4.6, Chloride 106, Carbon Dioxide 25.0, Anion Gap 6, BUN 28 H, Creatinine 1.14 H, Estim Creat Clear Calc 58.74, Est GFR (MDRD) Af Amer 62, Est GFR (MDRD) Non-Af 51 L, BUN/Creatinine Ratio 24.6 H, Glucose 160 H, Calcium 10.7 H, Troponin I High Sens 7944 H* Assessment & Plan Assessment/Plan (1) Acute RI, true posterior wall, initial episode of care: (2) Leukocytosis: (3) Elevated serum creatinine: (4) Hyperglycemia: PLAN: Plan Acute posterior wall RI -Status post PCI with LUZMARIA to proximal RCA -Aspirin 81 mg daily -Brilinta 90 mg p.o. twice daily -Patient has statin allergy and refuses to try atorvastatin--> previously did not tolerate lovastatin -Metoprolol 25 mg p.o. twice daily with hold parameters -Will have to wait to see if she tolerates metoprolol before adding low-dose lisinopril given her pressures at this time -Check echocardiogram -Check lipids/A1c -Cardiac rehab consultation -Dietitian consultation -Monitor on telemetry for reperfusion arrhythmias -Cardiology is following-appreciate input Elevated serum creatinine -1.14 on presentation -Does appear to be mildly dry however baseline is unclear -Repeat lab in a.m. Hyperglycemia -No history of diabetes -May be stress response due to underlying -Will check hemoglobin A1c Leukocytosis -Mild -Suspect reactive -Repeat CBC in a.m. Tobacco abuse -Strongly recommend cessation and did discuss with patient -Patient denies need for nicotine patch -States she currently smokes about a half a pack a day Fibromyalgia -Continue home Cymbalta Depression -Continue home duloxetine/escitalopram Obesity -complicates treatment, prognosis, outcomes -Recommend weight loss DVT prophylaxis -subcu enoxaparin CODE STATUS -Full code Charges/Coding Visit Charges Inpatient E&M: 11691 Init Hosp L2
[2024-06-17 15:05] LABS: Hematocrit 44.9 % (37-47); Hemoglobin 16.3 g/dL (12.0-15.0); Mean Corp Hgb Conc 36.3 g/dL (32-36); Mean Corpuscular Hgb 33.1 pg (27.0-32.0); Mean Corpuscular Volume 91.1 fL (81-99); Mean Platelet Vol. 11.7 fl (6.2-12.0); Platelet Count 249 K/mm3 (150-450); RBC Distribution Width CV 12.4 % (11.6-14.6); RBC Distribution Width SD 40.9 fl (35.1-43.9); Red Blood Count 4.93 M/mm3 (4.2-5.4); White Blood Count 12.9 K/mm3 (4.4-11.0)
[2024-06-17 15:09] LABS: Scan Indicated on CBC? Y/N NO
[2024-06-17 16:37] LABS: Hemoglobin A1c 5.8 % (3.8-5.6)
[2024-06-17] MEDS: Ondansetron 4 MG/2 ML Vial IV (17:32)
[2024-06-17] MEDS: Atorvastatin Calcium 80 MG Tablet PO (22:02)
[2024-06-17] MEDS: Metoprolol Tartrate 25 MG Tablet 12.5 MG PO (22:03)
[2024-06-18] VITALS (15 sets, daily range): BP systolic 126–160; BP diastolic 58–87; PULSE 66–100; RESP 16–26; TEMP 36.6; O2SAT 94–99; BMI 33.0
--- NOTE | 2024-06-18 05:55 | ECHOCS_ITS ---
Reason For Study: CAD/ASHD Procedure This was a 2D Doppler, Color Flow transthoracic echocardiogram. Contrast injection was performed. Exam performed portable in ICU/CCU. Left Ventricle Normal left ventricle. The estimated ejection fraction is 55-60 %. Right Ventricle Normal right ventricle. Normal systolic function. Atria Normal left atrium. Normal right atrium. Mitral Valve There is mild to moderate mitral annular calcification. Mild (1+) mitral valve insufficiency. Tricuspid Valve Normal tricuspid valve. No tricuspid valve insufficiency. Aortic Valve Trisinus/trileaflet aortic valve. Pulmonic Valve The pulmonic valve is not well visualized. Great Vessels Normal aortic root. Pericardium/Pleural No pericardial effusion. Medication Diluted definity 2ml given slow IV push to enhance endocardial definition. MMode/2D Measurements & Calculations LVIDd: 5.2 cm IVSd: 0.94 cm LVOT diam: 1.9 cm LVIDs: 3.4 cm LVPWd: 0.95 cm RVDd: 2.9 cm FS: 34.4 % LVOT area: 2.7 cm2 asc Aorta Diam: 3.0 cm LAV(MOD-bp): 32.3 ml LVAd ap4: 28.7 cm2 LAV(MOD-bp) Indexed: 15.9 ml/m2 LVLd ap4: 8.1 cm LAV(MOD-sp2): 30.8 ml EDV(MOD-sp4): 85.5 ml LAV(MOD-sp4): 31.1 ml EDV(sp4-el): 86.8 ml LVAs ap4: 14.6 cm2 LVLs ap4: 6.5 cm ESV(MOD-sp4): 30.3 ml ESV(sp4-el): 28.0 ml EF(MOD-sp4): 64.6 % EF(sp4-el): 67.7 % SV(MOD-sp4): 55.2 ml SV(sp4-el): 58.7 ml LA A4 area: 14.0 cm2 SI(MOD-sp4): 27.1 ml/m2 LA dimension(2D): 3.9 cm RA A4 area: 8.6 cm2 TAPSE: 2.0 cm Time Measurements MV dec time: 0.22 sec Doppler Measurements & Calculations MV E max surendra: 73.5 cm/sec Lat Peak E' Surendra: 6.2 cm/sec Med Peak E' Surendra: 3.5 cm/sec MV A max surendra: 121.1 cm/sec E/E' lat: 11.9 E/E' med: 21.2 MV E/A: 0.61 MV dec slope: 337.3 cm/sec2 Ao V2 max: 225.6 cm/sec LV V1 max: 138.6 cm/sec Ao max P.5 mmHg LV V1 max P.7 mmHg Ao V2 mean: 155.8 cm/sec LV V1 mean P.7 mmHg Ao mean P.8 mmHg LV V1 mean: 90.9 cm/sec Ao V2 VTI: 36.9 cm LV V1 VTI: 20.6 cm AV (velocity ratio): 0.56 FIFI(I,D): 1.5 cm2 FIFI(V,D): 1.7 cm2 SV(LVOT): 56.6 ml PA V2 max: 124.2 cm/sec ECHO/Echo Complete W/ Contrast Interpretation Summary The estimated ejection fraction is 55-60 %. Mild inferior hypokinesia Mild MR No prior echo to compare Ordering Physician: Ganga Junior Referring Physician: Ganga Junior Performed By: Xochitl Benitez, RDCS, RVT
[2024-06-18 06:59] LABS: Hematocrit 41.9 % (37-47); Hemoglobin 14.6 g/dL (12.0-15.0); Mean Corp Hgb Conc 34.8 g/dL (32-36); Mean Corpuscular Hgb 31.7 pg (27.0-32.0); Mean Corpuscular Volume 91.1 fL (81-99); Mean Platelet Vol. 11.5 fl (6.2-12.0); Platelet Count 222 K/mm3 (150-450); RBC Distribution Width CV 12.5 % (11.6-14.6); RBC Distribution Width SD 41.4 fl (35.1-43.9); White Blood Count 14.3 K/mm3 (4.4-11.0)
[2024-06-18 07:27] LABS: ALB/GLOB Ratio 0.9 RATIO (0.9-2.4); AST(SGOT) 133 U/L (15-37); Alanine Aminotransfer ALT/SGPT 71 U/L (13-56); Albumin, Serum 3.3 g/dL (3.2-5.0); Alkaline Phosphatase 148 U/L (45-117); Anion Gap 7 (5-15); BUN 18 mg/dL (7-18); Calcium,Total 9.5 mg/dL (8.5-10.1); Chloride 108 mmol/L (98-107); Cholesterol 280 mg/dL (200); Creatinine, Serum 0.94 mg/dL (0.55-1.02); EST Glomerular Filtration Rate 63 mL/min (>60); Est Glom Filt Rate - Afr Amer 77 mL/min (>60); Estimated Creatinine Clearance 70.46 ml/min; Globulin 3.5 g/dL (2.2-4.2); Glucose 163 mg/dL (74-106); High Density Lipoprotein 33 mg/dL; Magnesium 1.9 mg/dL (1.6-2.6); Potassium 3.9 mmol/L (3.5-5.1); Protein, Total 6.8 g/dL (6.4-8.2); Sodium Level 137 mmol/L (136-145); Triglycerides 440 mg/dL
[2024-06-18 07:28] LABS: Phosphorus 2.3 mg/dL (2.5-4.9)
[2024-06-18] MEDS: Aspirin E.C. 81 MG Tablet PO (08:19)
[2024-06-18] MEDS: Lisinopril 5 MG Tablet PO (08:19)
[2024-06-18] MEDS: Metoprolol Tartrate 25 MG Tablet 12.5 MG PO (08:20)
[2024-06-18] MEDS: DULoxetine Hcl 60 MG Capsule 120 MG PO (08:20)
[2024-06-18] MEDS: Enoxaparin 40 MG/0.4 ML Syringe SC (08:22)
--- NOTE | 2024-06-18 10:00 | EKG12_ITS ---
Test Reason : POST OP Blood Pressure : */* mmHG Vent. Rate : 61 BPM Atrial Rate : 61 BPM P-R Int : 140 ms QRS Dur : 76 ms QT Int : 454 ms P-R-T Axes : 36 39 30 degrees QTcB Int : 457 ms Normal sinus rhythm Nonspecific ST and T wave abnormality Abnormal ECG No previous ECGs available Confirmed by Gary Cardona ([id number]), greeting card editor KATT CASEY ([id number]) on 06/20/2024 9:59:37 AM Referred By: Ganga Junior Confirmed By: Gary Cardona
--- NOTE | 2024-06-18 10:45 | CASEMGMT ---
Addendum entered by Mayra Almeida 06/18/24 12:29: TC to [facility], cost of Brilinta is $47. Original Note: PRINCE SCHMIDT Assessment: Face to Face with pt for initial transition planning/care coordination assessment. PRINCE SCHMIDT introduced self and role at [facility], pt voices understanding and consents to assessment. Pt is A&O x4 and answers all questions appropriately at this time. Pt lying in bed in no distress with at bedside. Care providers, pharmacy, and demographics verified/updated. Admitting Dx: STEMI PCP:Yossi Specialists:Denies Preferred Pharmacy:[facility] Insurance: [email or web address] [facility] Prescription Benefit: yes LNOK: Cole Castillo, Living Arrangements: Pt lives with in a single story home with 3 steps to enter. Pt reports she is I in ADLs and denies concerns at home. Transportation: Pt drives self and denies concerns with transportation. DME:Pt has a w/c, cane, scooter, crutches, hospital bed. Pt denies using any AD currently. HHC/SNF: Pt denies hx of Pt states no concerns with going home at time of dc. Pt to be ordered Brilinta, no order in yet to check villavicencio. Med to be called to [facility] and savings card may be applied. RN CM to follow. Pt states no further concerns/needs. CM to follow. Advised pt to ask CM if any further question/concerns/needs arise, voices understanding. Pt Goal: Home Plan: Home Garland MORRISON CM
--- NOTE | 2024-06-18 12:47 | PCM.PN.CARD ---
Subjective Subjective No events noted from last night Objective Data Vital Signs: Vital Signs Temp Pulse Resp BP Pulse Ox O2 Del Method 97.9 F 75 16 126/65 H 95 Room Air 06/18/24 07:58 06/18/24 12:30 06/18/24 09:30 06/18/24 09:30 06/18/24 09:30 06/18/24 09:30 Oxygen Delivery Method Room Air Weight: 205 lb 7.533 oz Body Mass Index (BMI) 33.0 Intake & Output: Intake and Output for Last 24 Hours 06/16/24 06/17/24 06/18/24 23:59 23:59 23:59 Intake Total 1203.75 / 1203.75 332.75 / 332.75 Output Total 0 / 0 Balance 1202.75 / 1202.75 332.75 / 332.75 Lab / Micro Data 06/18/24 06:52 06/18/24 06:52 Labs: Laboratory Results - last 24 hr 06/17/24 11:49: Hemoglobin A1c 5.8 H 06/17/24 14:47: WBC 12.9 H, RBC 4.93, Hgb 16.3 H, Hct 44.9, MCV 91.1, MCH 33.1 H, MCHC 36.3 H D, RDW Std Deviation 40.9, RDW Coeff of Verónica 12.4, Plt Count 249, MPV 11.7 06/18/24 06:52: WBC 14.3 H, RBC 4.60, Hgb 14.6, Hct 41.9, MCV 91.1, MCH 31.7, MCHC 34.8, RDW Std Deviation 41.4, RDW Coeff of Verónica 12.5, Plt Count 222, MPV 11.5, Sodium 137, Potassium 3.9, Chloride 108 H, Carbon Dioxide 21.0, Anion Gap 7, BUN 18, Creatinine 0.94, Estim Creat Clear Calc 70.46, Est GFR (MDRD) Af Amer 77, Est GFR (MDRD) Non-Af 63, BUN/Creatinine Ratio 19.0, Glucose 163 H, Calcium 9.5, Phosphorus 2.3 L, Magnesium 1.9, Total Bilirubin 0.70, AST 133 H, ALT 71 H, Alkaline Phosphatase 148 H, Total Protein 6.8, Albumin 3.3, Globulin 3.5, Albumin/Globulin Ratio 0.9, Triglycerides 440 H, Cholesterol 280 H, LDL Cholesterol TNP, VLDL Cholesterol TNP, HDL Cholesterol 33 L Cardiology Labs/Tests 06/17/24 11:49: Hemoglobin A1c 5.8 H 06/17/24 14:47: WBC 12.9 H, RBC 4.93, Hgb 16.3 H, Hct 44.9, MCV 91.1, MCH 33.1 H, MCHC 36.3 H D, Plt Count 249, MPV 11.7 06/18/24 06:52: WBC 14.3 H, RBC 4.60, Hgb 14.6, Hct 41.9, MCV 91.1, MCH 31.7, MCHC 34.8, Plt Count 222, MPV 11.5, Sodium 137, Potassium 3.9, Chloride 108 H, Carbon Dioxide 21.0, Anion Gap 7, BUN 18, Creatinine 0.94, Est GFR (MDRD) Af Amer 77, Est GFR (MDRD) Non-Af 63, BUN/Creatinine Ratio 19.0, Glucose 163 H, Calcium 9.5, Phosphorus 2.3 L, Magnesium 1.9, Total Bilirubin 0.70, Triglycerides 440 H, Cholesterol 280 H, LDL Cholesterol TNP, VLDL Cholesterol TNP, HDL Cholesterol 33 L Rhythm: EKG: ECHO: Stress Test: Cardiac Cath: PCI: CT Surgery: Holter monitor: EPS: PPM: CXR: Chest CT Scan: Radiography Diagnostic Testing: Radiology Impression Echocardiogram 06/18/24 05:55 Interpretation Summary The estimated ejection fraction is 55-60 %. Mild inferior hypokinesia Mild MR No prior echo to compare Ordering Physician: Ganga Junior Referring Physician: Ganga Junior Performed By: Xochitl Benitez, RDCS, RVT Physical Exam Cardio Cardio Narrative: Underlying cardiac rhythm is sinus Cardiovascular exam S1-S2 regular Chest exam is clear auscultation bilateral Examination lower extremity no lower extremity edema Pedal pulses palpable Assessment & Plan Assessment/Plan (1) Arteriosclerosis of coronary artery: (2) Stented coronary artery: (3) Acute SD, true posterior wall, initial episode of care: PLAN: 63-year-old patient Had presentation with epigastric discomfort she has ongoing symptoms since Thursday which she has some discomfort in the left shoulder some radiation to the back feeling nauseated and she was also diaphoretic Symptoms got worse over the week and she came yesterday to the ER Will noted she had significant change in the EKG with recent inferoposterior SD and based on her clinical presentation she was taken to the Examiner Of Currency Where a lesion identified in the proximal circumflex at the RESTORATIVE ART EMBALMER occluded proximally and she had a high-grade lesion involving large dominant RCA where she underwent PCI and stent. From review of all her record it seems patient had some allergy to statin in the past She had a history of hyperglycemia as well leukocytosis tobacco abuse history of fibromyalgia and depression. And she been seen by the medical team for management of her medical problems Cardiac care plan From cardiac standpoint recommendation will be #1 to continue on the dual antiplatelet with Brilinta and aspirin 2. I reviewed her echocardiogram which showed LV function is preserved she had mild inferior hypokinesia otherwise ejection fraction preserved with mild MR and also she has mild diastolic dysfunction. Agree with adding low-dose beta-jeni as tolerated in addition to CHEPE inhibitor based on her creatinine numbers. Patient will be scheduled for cardiology follow-up as an outpatient with [facility] machine pie maker As well will schedule for phase 1 cardiac rehab program In regards to her hyperlipidemia alternatives will be to consider Repatha. From cardiac standpoint we will continue to monitor and follow-up clinically. If she remained stable she can be transferred to progressive care unit
--- NOTE | 2024-06-18 14:09 | DCINST_ITS ---
Discharge Instructions Diet Discharge Diet: - (DASH diet) DC O2, CPAP, BIPAP needs Additional Home O2 Discharge instructions: No Dressing / Incision Discharge Activity: - (See post cath instructions) Follow Up Care Test Results: Test results from this visit will be discussed in further detail at your follow- up appointment, if applicable. Discharge Plan Admission Admit Date/Time: 06/17/24 14:52 Primary Reason for Your Visit: Heart attack Attending Provider: Delia Marino Primary Care Provider: Jake Sy Consulting Providers: Ganga Junior; Rosa Maria Cordova Instructions Patient Instructions: Cardiac Catheterization Dc Additional Instructions / Restrictions: DISCHARGE INSTRUCTIONS PLEASE READ *Please take this with you to your next doctors appointment* -You will be continued on aspirin daily and Brilinta which will be twice daily -You have also been started on metoprolol and lisinopril for heart as well -It is strongly advised that you consider atorvastatin or other statin given your cardiovascular disease and need for stenting. You were not agreeable to be discharged on a statin at this time but indicated you were agreeable to trying ezetimibe so a prescription for this was sent to the pharmacy. Would recommend discussing Repatha with your PCP or dyer and washer upon discharge as an alternative to statin -Please follow-up with cardiology upon discharge. Please call their office to schedule hospital follow-up appointment upon discharge. -Given your heart disease it would be beneficial to discontinue Adderall for an alternative medication, will defer this to your outpatient/prescribing physician -Do only light and easy activities for 2 to 3 days after your stent placement, ask for help with chores and errands while you recover and have someone drive you to your appointments. -Unless your job involves lifting you may return to normal activities within 2 days -Please take your medications as prescribed, do not skip doses -Check your incisions every day for signs of infection which would include redness, swelling, leaking. It is normal to have a small bruise or bump where the catheter was placed but a bruise that is getting larger is not normal. Please tell your healthcare team about this. Please proceed to the emergency department if you have uncontrollable bleeding from the site. -It is important to eat a diet that is low in fat, salt, and cholesterol -You will be set up with cardiac rehab upon discharge, it is important that you follow-up -Okay to shower from the day after your heart catheterization but keep your incision site clean and dry. -It is strongly advised not to take both duloxetine (Cymbalta) and escitalopram (Lexapro) together due to concern for medication interactions -It is strongly advised that you refrain from smoking -Would recommend lab work (CMP) to check your liver function in 2 to 3 days through your primary care physician's office as the liver function numbers were slightly elevated. Please call their office upon discharge to obtain order for lab work. -Please call your primary care provider's office upon discharge to schedule a hospital follow up within 1 week. -For any concerning signs or symptoms please call 911 or proceed to the nearest emergency department Discharge Orders/Prescriptions Prescriptions: New aspirin 81 mg Tablet,Delayed Release (Dr/Ec) 81 mg PO DAILY 30 Days Qty: 30 0RF lisinopril 5 mg Tablet 5 mg PO DAILY 30 Days Qty: 30 0RF metoprolol tartrate 25 mg Tablet 12.5 mg PO BID 30 Days Qty: 30 0RF Brilinta 90 mg Tablet 90 mg PO BID 30 Days Qty: 60 0RF ezetimibe 10 mg Tablet 10 mg PO DAILY 30 Days Qty: 30 0RF Continued duloxetine 60 mg capsule,delayed release(DR/EC) 120 mg PO DAILY Discontinued dextroamphetamine-amphetamine 30 mg tablet 1 tab PO TID escitalopram oxalate 10 mg tablet 10 mg PO DAILY Referrals / Follow Up: Ganga Junior MD [Med Staff - Active Staff] - (-Please follow-up with with [facility] on upon discharge. Please call their office to schedule hospital follow-up appointment upon discharge.) Jake Sy MD [Primary Care Provider] - Within 1 Week Disposition Disposition (needs filled in before D/C Order can be placed): Home, Self Care
--- NOTE | 2024-06-18 14:16 | PCM.DC.SUM ---
Providers Date of Admission: 06/17/24 Date of Discharge: 06/18/24 Primary Care Physician: Dr. Jake Sy MD Consultations 06/17/24 14:16 Consult: Cardiology Routine Consulting Provider: Ganga Junior Reason for Consult: STEMI EMERGENT Consult: No MD Notified: Yes Date Notified: 06/17/24 Time Notified: 14:17 Method of Notification: Verbal 06/17/24 14:58 Consult: Cardiology Stat Consulting Provider: Ganga Junior Reason for Consult: Chest Pain EMERGENT Consult: Yes MD Notified: Yes Date Notified: 06/17/24 Time Notified: 14:54 Method of Notification: ED Physician Initiated Reason For Visit: Inferior wall TX Diagnosis Discharge Diagnosis (1) Arteriosclerosis of coronary artery: Status: Acute Code(s): I25.10 - Atherosclerotic heart disease of [place] coronary artery without angina pectoris (2) Stented coronary artery: Status: Chronic Code(s): Z95.5 - Presence of coronary angioplasty implant and graft (3) Acute TX, true posterior wall, initial episode of care: Status: Acute Code(s): I21.29 - ST elevation (STEMI) myocardial infarction involving other sites Plan # Inferior wall TX # Coronary artery disease status post PCI # Anxiety/depression # ADHD # Fibromyalgia # Statin intolerance Medications at Discharge Home Medications duloxetine 60 mg capsule,delayed release 120 mg PO DAILY depression 06/17/24 aspirin 81 mg tablet,delayed release 81 mg PO DAILY 30 days #30 tabs 06/18/24 ezetimibe 10 mg tablet 10 mg PO DAILY 30 days #30 tabs 06/18/24 lisinopril 5 mg tablet 5 mg PO DAILY 30 days #30 tabs 06/18/24 metoprolol tartrate 25 mg tablet 12.5 mg (1/2 x 25 mg) PO BID 30 days #30 tabs 06/18/24 ticagrelor 90 mg tablet (Brilinta) 90 mg PO BID 30 days #60 tabs 06/18/24 Hospital Course Procedures 2-D Echocardiogram and Cardiac catheterization (With stented coronary artery) Summary of Care Provided Minutes Spent on Discharge: 32 Hospital Course: 63-year-old female history of fibromyalgia, depression, ADHD who presented [facility] ED 06/17/2024 for chest pain referred to left scapula and back. She went to urgent care and her EKG revealed mild ST elevation inferiorly concerning for posterior TX and ST depression in anterior lateral leads. Cardiology contacted and patient went to [facility] where she is found to have a high-grade lesion of the proximal RCA with successful PCI with LUZMARIA 1 was subsequently admitted to the ICU for monitoring. Patient placed on aspirin, Brilinta, metoprolol, lisinopril and tolerated his medications well. Patient felt achy with lovastatin previously and that we discussed the purpose and benefit of the statin patient was not agreeable to discharge home on a statin but was willing to discharge with a prescription for Zetia, would benefit from discussing Repatha on discharge, this information was placed in her discharge instructions. During her hospitalization she did have a slight elevation white blood cell count which is likely reactive, she had no focal complaints whatsoever or anything else that would indicate active infection so do not think she needs any empiric antibiotics and patient is vitally stable and afebrile. Patient evaluated by cardiology on day of discharge, after patient was seen and it was determined that she could be discharged home. On discharge patient feeling better with no new or acute complaints and denies any chest pain or shortness of breath. Discharge instructions as followed: DISCHARGE INSTRUCTIONS PLEASE READ *Please take this with you to your next doctors appointment* -You will be continued on aspirin daily and Brilinta which will be twice daily -You have also been started on metoprolol and lisinopril for heart as well -It is strongly advised that you consider atorvastatin or other statin given your cardiovascular disease and need for stenting. You were not agreeable to be discharged on a statin at this time but indicated you were agreeable to trying ezetimibe so a prescription for this was sent to the pharmacy. Would recommend discussing Repatha with your PCP or telephone lineworker upon discharge as an alternative to statin -Please follow-up with cardiology upon discharge. Please call their office to schedule hospital follow-up appointment upon discharge. -Given your heart disease it would be beneficial to discontinue Adderall for an alternative medication, will defer this to your outpatient/prescribing physician -Do only light and easy activities for 2 to 3 days after your stent placement, ask for help with chores and errands while you recover and have someone drive you to your appointments. -Unless your job involves lifting you may return to normal activities within 2 days -Please take your medications as prescribed, do not skip doses -Check your incisions every day for signs of infection which would include redness, swelling, leaking. It is normal to have a small bruise or bump where the catheter was placed but a bruise that is getting larger is not normal. Please tell your healthcare team about this. Please proceed to the emergency department if you have uncontrollable bleeding from the site. -It is important to eat a diet that is low in fat, salt, and cholesterol -You will be set up with cardiac rehab upon discharge, it is important that you follow-up -Okay to shower from the day after your heart catheterization but keep your incision site clean and dry. -It is strongly advised not to take both duloxetine (Cymbalta) and escitalopram (Lexapro) together due to concern for medication interactions -It is strongly advised that you refrain from smoking -Would recommend lab work (CMP) to check your liver function in 2 to 3 days through your primary care physician's office as the liver function numbers were slightly elevated. Please call their office upon discharge to obtain order for lab work. -Please call your primary care provider's office upon discharge to schedule a hospital follow up within 1 week. -For any concerning signs or symptoms please call 911 or proceed to the nearest emergency department -Please call your primary care provider's office upon discharge to schedule a hospital follow up within 1 week. -For any concerning signs or symptoms please call 911 or proceed to the nearest emergency department Physical Exam Narrative General: Alert, oriented, no apparent distress HEENT: Atraumatic, normocephalic Eyes: Anicteric, normal conjunctiva, extraocular movements grossly intact Neck: Supple Respiratory: Clear to auscultation bilaterally, normal respiratory effort Cardiovascular: Regular rate and rhythm GI: Soft, nontender, nondistended Extremities: No edema Musculoskeletal: Moving all extremities Neuro: No overt focal neurological deficits Skin: No rashes appreciated Psych: Cooperative Weight / BMI Weight Weight: 93.2 kg Body Mass Index (BMI) 33.0 ABG / Lab / Microbiology Data 06/18/24 06:52 06/18/24 06:52 Laboratory: Laboratory Results - last 24 hr 06/17/24 11:49: Hemoglobin A1c 5.8 H 06/17/24 14:47: WBC 12.9 H, RBC 4.93, Hgb 16.3 H, Hct 44.9, MCV 91.1, MCH 33.1 H, MCHC 36.3 H D, RDW Std Deviation 40.9, RDW Coeff of [place] 12.4, Plt Count 249, MPV 11.7 06/18/24 06:52: WBC 14.3 H, RBC 4.60, Hgb 14.6, Hct 41.9, MCV 91.1, MCH 31.7, MCHC 34.8, RDW Std Deviation 41.4, RDW Coeff of [place] 12.5, Plt Count 222, MPV 11.5, Sodium 137, Potassium 3.9, Chloride 108 H, Carbon Dioxide 21.0, Anion Gap 7, BUN 18, Creatinine 0.94, Estim Creat Clear Calc 70.46, Est GFR (MDRD) Af Amer 77, Est GFR (MDRD) Non-Af 63, BUN/Creatinine Ratio 19.0, Glucose 163 H, Calcium 9.5, Phosphorus 2.3 L, Magnesium 1.9, Total Bilirubin 0.70, AST 133 H, ALT 71 H, Alkaline Phosphatase 148 H, Total Protein 6.8, Albumin 3.3, Globulin 3.5, Albumin/Globulin Ratio 0.9, Triglycerides 440 H, Cholesterol 280 H, LDL Cholesterol TNP, VLDL Cholesterol TNP, HDL Cholesterol 33 L Radiography Diagnostic Testing: Radiology Impression Echocardiogram 06/18/24 05:55 Interpretation Summary The estimated ejection fraction is 55-60 %. Mild inferior hypokinesia Mild MR No prior echo to compare Ordering Physician: Ganga Junior Referring Physician: Ganga Junior Performed By: Xochitl Benitez, BARRON, RVT D/C Instructions Discharge Diet: - (DASH diet) DC O2, CPAP, BIPAP Needs Additional Home O2 Discharge instructions: No DC home with Oxygen: No Meaningful Use Info Meaningful Use Meaningful Use Diagnoses (Choose all that apply): AMI AMI/Post PCI/Angioplasty Aspirin given w/in 24hrs of arrival?: Yes ASA at discharge?: Yes Antiplatelet Therapy at Discharge:: Yes Statins at discharge?: No Reason statins not ordered:: Allergy Nelson/ARB at discharge?: Yes Beta Jorge A at discharge?: Yes Done w/ Acute TX measure.: Yes Documented LVEF (%): 55 Ischemic Stroke Statin Dosing Therapy Reference: STATIN DOSE THERAPY REFERENCE: * Patients > 75 years receive moderate or high dose statin therapy. * Patients 75 years or YOUNGER should receive HIGH intensity statin dose unless contraindicated. You will be required to document reason for non-treatment if statin daily dose does not meet guidelines. HIGH DOSE STATIN THERAPY DAILY Atorvastatin > than or = to 40 mg Rosuvastatin > than or = to 20 mg Amlodipine + Atorvastatin > than or = to 2.5/40 mg Ezetimibe + Simvastatin 10/80 mg Simvastatin 80mg Discharge Plan Admission Admit Date/Time: 06/17/24 14:52 Primary Reason for Your Visit: Heart attack Attending Provider: Delia Marino Primary Care Provider: Jake Sy Consulting Providers: Ganga Junior; Rosa Maria Cordova Instructions Patient Instructions: Cardiac Catheterization Dc Additional Instructions / Restrictions: DISCHARGE INSTRUCTIONS PLEASE READ *Please take this with you to your next doctors appointment* -You will be continued on aspirin daily and Brilinta which will be twice daily -You have also been started on metoprolol and lisinopril for heart as well -It is strongly advised that you consider atorvastatin or other statin given your cardiovascular disease and need for stenting. You were not agreeable to be discharged on a statin at this time but indicated you were agreeable to trying ezetimibe so a prescription for this was sent to the pharmacy. Would recommend discussing Repatha with your PCP or telephone lineworker upon discharge as an alternative to statin -Please follow-up with cardiology upon discharge. Please call their office to schedule hospital follow-up appointment upon discharge. -Given your heart disease it would be beneficial to discontinue Adderall for an alternative medication, will defer this to your outpatient/prescribing physician -Do only light and easy activities for 2 to 3 days after your stent placement, ask for help with chores and errands while you recover and have someone drive you to your appointments. -Unless your job involves lifting you may return to normal activities within 2 days -Please take your medications as prescribed, do not skip doses -Check your incisions every day for signs of infection which would include redness, swelling, leaking. It is normal to have a small bruise or bump where the catheter was placed but a bruise that is getting larger is not normal. Please tell your healthcare team about this. Please proceed to the emergency department if you have uncontrollable bleeding from the site. -It is important to eat a diet that is low in fat, salt, and cholesterol -You will be set up with cardiac rehab upon discharge, it is important that you follow-up -Okay to shower from the day after your heart catheterization but keep your incision site clean and dry. -It is strongly advised not to take both duloxetine (Cymbalta) and escitalopram (Lexapro) together due to concern for medication interactions -It is strongly advised that you refrain from smoking -Would recommend lab work (CMP) to check your liver function in 2 to 3 days through your primary care physician's office as the liver function numbers were slightly elevated. Please call their office upon discharge to obtain order for lab work. -Please call your primary care provider's office upon discharge to schedule a hospital follow up within 1 week. -For any concerning signs or symptoms please call 911 or proceed to the nearest emergency department Discharge Orders/Prescriptions Prescriptions: New aspirin 81 mg Tablet,Delayed Release (Dr/Ec) 81 mg PO DAILY 30 Days Qty: 30 0RF lisinopril 5 mg Tablet 5 mg PO DAILY 30 Days Qty: 30 0RF metoprolol tartrate 25 mg Tablet 12.5 mg PO BID 30 Days Qty: 30 0RF Brilinta 90 mg Tablet 90 mg PO BID 30 Days Qty: 60 0RF ezetimibe 10 mg Tablet 10 mg PO DAILY 30 Days Qty: 30 0RF Continued duloxetine 60 mg capsule,delayed release(DR/EC) 120 mg PO DAILY Discontinued dextroamphetamine-amphetamine 30 mg tablet 1 tab PO TID escitalopram oxalate 10 mg tablet 10 mg PO DAILY Referrals / Follow Up: Ganga Junior MD [Med Staff - Active Staff] - (-Please follow-up with with [facility] on upon discharge. Please call their office to schedule hospital follow-up appointment upon discharge.) Jake Sy MD [Primary Care Provider] - Within 1 Week Disposition Disposition (needs filled in before D/C Order can be placed): Home, Self Care Charges/Coding Visit Charges Inpatient E&M: 16395 Disch Hosp >30min
[2024-06-22 15:49] LABS: ACT Activated Clotting Time 275 sec (74-137)
== END 2024-06-18 14:30 | disposition home or self-care (01) | DRG 322 ==
LOC: ED 11:36 → ICU 11:42
PROVIDERS: Internal Medicine; Admitting Provider Internal Medicine Interventional Cardiology; Emergency Provider Emergency Medicine; PCP Family Medicine; Referring Provider Internal Medicine Interventional Cardiology; Visit Provider Internal Medicine
DX: I21.4 Non-ST elevation (NSTEMI) myocardial infarction (principal); D72.829 Elevated white blood cell count, unspecified; F32.A Depression, unspecified; E66.9 Obesity, unspecified; F17.210 Nicotine dependence, cigarettes, uncomplicated; M79.7 Fibromyalgia; F41.9 Anxiety disorder, unspecified; I25.10 Atherosclerotic heart disease of native coronary artery without angina pectoris; F90.9 Attention-deficit hyperactivity disorder, unspecified type; R73.9 Hyperglycemia, unspecified; R79.89 Other specified abnormal findings of blood chemistry; Z88.8 Allergy status to other drugs, medicaments and biological substances; Z68.33 Body mass index [BMI] 33.0-33.9, adult; Z79.899 Other long term (current) drug therapy
CPT/HCPCS: 36415; 80048; 80053; 80061; 83036; 83735; 84100; 84484; 85025; 85027; 85347; 85610; 85730; 92928; 93005; 93306; 93454; 94668; 94762; 97802; Q9957; Q9967; A4216; C1725; C1769; C1874; C1887; C1894; C8929; C9600; J1327; J2405